=== PATIENT | male | born 1970 | race American Indian/Alaskan Native ===

== ENCOUNTER 2017-04-23 07:42 | Day surgery (SDC) | payer BC ==
[2017-04-23] MEDS ORDERED: Lactated Ringer's 1,000 ML IV ONE (08:04)
[2017-04-23] MEDS ORDERED: Propofol 10 mg/ml Inj (20 ML) ONE (08:59)
[2017-04-23 09:15] VITALS: TEMP 96.9
[2017-04-23 10:33] VITALS: BP 110/69; PULSE 91; RESP 17; O2SAT 98
== END 2017-04-23 10:34 | disposition home or self-care (01) ==
LOC: H.ENDO 07:42
PROVIDERS: ATTEND Internal Medicine Gastroenterology
DX: Z12.11 Encounter for screening for malignant neoplasm of colon (principal); K57.30 Diverticulosis of large intestine without perforation or abscess without bleeding
CPT/HCPCS: G0121; J2704; J7120